=== PATIENT | male | born 1980 | race Caucasian/White ===

== ENCOUNTER 2019-02-25 18:55 | Emergency (ER) | payer OTHER ==
[~2019-02-25] VITALS: Ht 160 cm; Wt 46.7 kg
[~2019-02-25 18:55] MED LIST: ATIVAN1 MG PO; CARAFATE1 GM/10 ML PO; LORAZEPAM 0.50.5 MG PO; ONDANSETRON HCL4 M2 PO; PRILOSEC 20 MG20 MG PO; RANITIDINE 150150 M1 PO; TRAZODONE HCL100 MG PO; VITAMIN B-1100 M1 PO
[2019-02-25 21:10] LABS: HEMATOCRIT 34.2 % (42.0-52.0); HEMOGLOBIN 11.6 gm/dL (14.0-18.0); MCH 31.3 pg (26.0-34.0); MCHC 33.8 g/dL (28.0-37.0); MCV 92.5 fL (80.0-100.0); PLATELET COUNT 252 thou/uL (150-400); RBC 3.69 mil/uL (4.50-6.00); RDW 14.4 % (10.5-14.5); WBC 8.7 thou/uL (4.0-11.0)
[2019-02-25 21:20] LABS: CALCIUM 10.9 mg/dL (8.5-10.1); CREATININE 0.7 mg/dL (0.7-1.3); POTASSIUM 3.3 mmol/L (3.5-5.1)
[2019-02-25 21:34] LABS: ABSOLUTE NEUTROPHILS 4.6 thou/uL (1.4-8.2)
[2019-02-25 21:35] LABS: PLATELET ESTIMATE NORMAL
[2019-02-26 00:16] VITALS: BP 127/85
== END 2019-02-26 00:18 | disposition home or self-care (01) ==
LOC: ER 18:55
PROVIDERS: Emergency Medicine
DX: L02.01 Cutaneous abscess of face (principal); Z87.891 Personal history of nicotine dependence